=== PATIENT | female | born 2000 | race Caucasian/White ===

== ENCOUNTER → 2021-06-20 | Outpatient (CLI) | payer OTHER ==
[~2021-06-20] MED LIST: JANUVIA25 MG PO; NORCO 5-325 TA1 EACH PO; SYNTHROID150 MCG PO; SYNTHROID88 MCG PO; TYLENOL 325MG325 MG PO
== END ==
LOC: HEART 5 14:54
DX: R55 Syncope and collapse (principal); R00.2 Palpitations
CPT/HCPCS: 93306

== ENCOUNTER 2021-11-08 16:20 | Inpatient (IN) | payer OTHER ==
[~2021-11-08] VITALS: Ht 172.7 cm; Wt 74.8 kg
[2021-11-08 17:08] LABS: HEMOGLOBIN 12.3 gm/dl (12.3-15.3); RED BLOOD COUNT 4.23 M/UL (4.00-5.10); WHITE BLOOD COUNT 12.2 K/UL (4.5-11.0)
[2021-11-08] MEDS ORDERED: SYNTHROID137 MCG PO (18:03)
[2021-11-08] MEDS ORDERED: TOPROL XL 25 MG25 MG PO (18:04)
[2021-11-09] MEDS ORDERED: TYLENOL EXTRA500 MG PO (08:33)
[2021-11-09] MEDS ORDERED: COLACE100 MG PO (08:33)
[2021-11-10 06:27] LABS: HEMOGLOBIN 10.6 gm/dl (12.3-15.3)
== END 2021-11-11 12:20 | disposition home or self-care (01) | DRG 807 ==
LOC: GENOP 16:20 → OB 16:35
PROVIDERS: Obstetrics & Gynecology; ADMIT Obstetrics & Gynecology
PROC: 10E0XZZ Delivery of Products of Conception, External Approach (ICD-10-PCS; principal; 2021-11-09)
PROC: 10907ZC Drainage of Amniotic Fluid, Therapeutic from Products of Conception, Via Natural or Artificial Opening (ICD-10-PCS; 2021-11-09)
PROC: 3E033VJ Introduction of Other Hormone into Peripheral Vein, Percutaneous Approach (ICD-10-PCS; 2021-11-09)
PROC: 4A1HXCZ Monitoring of Products of Conception, Cardiac Rate, External Approach (ICD-10-PCS; 2021-11-09)
DX: O36.5930 Maternal care for other known or suspected poor fetal growth, third trimester, not applicable or unspecified (principal); Z37.0 Single live birth; Z3A.37 37 weeks gestation of pregnancy; Z20.822 Contact with and (suspected) exposure to COVID-19; O76 Abnormality in fetal heart rate and rhythm complicating labor and delivery; Z28.310 Unvaccinated for COVID-19; O69.81X0 Labor and delivery complicated by cord around neck, without compression, not applicable or unspecified; O99.284 Endocrine, nutritional and metabolic diseases complicating childbirth; E03.9 Hypothyroidism, unspecified; O99.52 Diseases of the respiratory system complicating childbirth; Z98.890 Other specified postprocedural states; Z80.3 Family history of malignant neoplasm of breast; Z80.1 Family history of malignant neoplasm of trachea, bronchus and lung; Z83.3 Family history of diabetes mellitus; Z82.49 Family history of ischemic heart disease and other diseases of the circulatory system; Z82.5 Family history of asthma and other chronic lower respiratory diseases
CPT/HCPCS: 36415; 81001; 82800; 82962; 85014; 85018; 85025; C9113; J0595; J0690; J2590; J3010